=== PATIENT | female | born 1995 | race Caucasian/White ===

== ENCOUNTER 2023-12-11 07:02 | Day surgery (SDC) | payer MEDICAID ==
[~2023-12-11] VITALS: Ht 170.2 cm; Wt 129.3 kg
[2023-12-11] VITALS (12 sets, daily range): BP systolic 111–136; BP diastolic 69–99; PULSE 68–78; RESP 15–18; TEMP 97.3–97.8
[2023-12-11] MEDS: 0.9%NACL 1000ML 1,000 ML IV ONE (09:14)
[2023-12-11] MEDS ORDERED: proPOFol 10 MG/ML 20ML VIAL IV ONE ×2 (09:44→09:50)
[2023-12-11] MEDS ORDERED: LIDOCAINE PF 100MG/5ML (2%) SYRINGE 5ML ONE (09:45)
== END 2023-12-11 11:15 | disposition home or self-care (01) ==
LOC: DAH 07:02 → SUH 07:02
PROVIDERS: ATTEND Internal Medicine Gastroenterology
DX: R12 Heartburn (principal); K29.50 Unspecified chronic gastritis without bleeding; K31.89 Other diseases of stomach and duodenum; K44.9 Diaphragmatic hernia without obstruction or gangrene; K22.89 Other specified disease of esophagus; K21.9 Gastro-esophageal reflux disease without esophagitis; E66.01 Morbid (severe) obesity due to excess calories; Z68.42 Body mass index [BMI] 45.0-49.9, adult; G47.30 Sleep apnea, unspecified; Z79.899 Other long term (current) drug therapy
CPT/HCPCS: 43239; 81025; J7030; J3490 ×3; A4620; A4215 ×2; A4223; A4222; A4221; A4663; A4606; J2001; J2704